=== PATIENT | male | born 1955 | race Caucasian/White ===

== ENCOUNTER 2023-09-23 00:58 | Inpatient (IN) | payer MEDICAID, OTHER ==
[~2023-09-23] VITALS: Ht 165.1 cm; Wt 81.6 kg
[2023-09-23] MEDS ORDERED: METF-440 PO (01:14)
[2023-09-23] MEDS ORDERED: LISI2.5T14 PO (01:14)
[2023-09-23] MEDS: IV NORMAL SALINE 1000 ML BAG IV ONE ×2 (02:10→05:52)
[2023-09-23 02:25] LABS: BASOPHILS % (AUTO) 0.2 % (0.0-2.0); HEMOGLOBIN 14.4 g/dL (12.5-16.3); LYMPHOCYTES # (AUTO) 0.2 K/uL (0.8-4.8); LYMPHOCYTES % (AUTO) 1.4 % (20.5-51.5); MEAN CORPUSCULAR HEMOGLOBIN 30.5 uug (23.8-33.4); MEAN CORPUSCULAR HGB CONC 34 g/dL (32.5-36.3); MEAN CORPUSCULAR VOLUME 91.1 fL (73.0-96.2); MONOCYTES # (AUTO) 0.1 K/uL (0.1-1.30); MONOCYTES % (AUTO) 0.5 % (0.0-11.0); NEUTROPHILS # (AUTO) 13.1 K/uL (1.8-8.9); NEUTROPHILS % (AUTO) 97.9 % (38.5-71.5); PLATELET COUNT (AUTO) 223 K/uL (152-348); RED BLOOD CELL COUNT(AUTO) 4.72 MIL/uL (4.06-5.63); RED CELL DISTRIBUTION WIDTH 13.6 % (12.1-16.2); WHITE BLOOD COUNT (AUTO) 13.3 K/uL (3.6-10.2)
[2023-09-23 02:27] LABS: DIFFERENTIAL COMMENT 1
[2023-09-23] MEDS ORDERED: CEFTRIAXONE /D5W 50ML IVPB **ER PYXIS IV ONE (02:30)
[2023-09-23] MEDS ORDERED: diphenhydrAMINE 50 MG/1 ML VIAL ONE (02:31)
[2023-09-23] MEDS ORDERED: METRONIDAZOLE 500 MG/NS 100ML 100 ML IV ONE (02:31)
[2023-09-23] MEDS ORDERED: METOCLOPRAMIDE HCL 10 MG/2 ML VIAL ONE (02:31)
[2023-09-23] MEDS ORDERED: HYDROMORPHONE 1 MG/1 ML DISP.SYRIN ONE (02:31)
[2023-09-23] MEDS: HYDROMORPHONE 1 MG/1 ML DISP.SYRIN IV ONE (02:40)
[2023-09-23] MEDS: diphenhydrAMINE 50 MG/1 ML VIAL IV ONE (02:40)
[2023-09-23] MEDS: METRONIDAZOLE 500 MG/NS 100ML 100 ML IV ONE (02:40)
[2023-09-23] MEDS: METOCLOPRAMIDE HCL 10 MG/2 ML VIAL IV ONE (02:40)
[2023-09-23 02:51] LABS: ALANINE AMINOTRANSFERASE 103 U/L (16-63); ALBUMIN 3.7 g/dL (3.4-5.0); ALKALINE PHOSPHATASE 244 U/L (50-136); ASPARTATE AMINOTRANSFERASE 203 U/L (15-37); BILIRUBIN,DIRECT 1.4 mg/dL (0.0-0.2); CALCIUM 8.7 mg/dL (8.5-10.1); CARBON DIOXIDE 25 mmol/L (21-32); CHLORIDE 99 mmol/L (98-107); CREATININE 1.2 mg/dL (0.6-1.3); NT-PRO BNP 55 pg/mL (0-125); POTASSIUM 3.3 mmol/L (3.5-5.1); SODIUM SERUM 134 mmol/L (136-145); TOTAL PROTEIN, SERUM 7.8 g/dL (6.4-8.2); UREA NITROGEN, BLOOD 14 mg/dL (7-18)
[2023-09-23 02:55] LABS: GLUCOSE 407 mg/dL (74-106); LACTIC ACID 2.7 mmol/L (0.4-2.0)
[2023-09-23] MEDS: CEFTRIAXONE 2 G in IV DEXTROSE 5% 100 ML IV ONE (03:30)
[2023-09-23] MEDS ORDERED: BENA10TA74 PO (04:35)
[2023-09-23 06:16] LABS: *BILIRUBIN,URIN NEGATIVE (NEGATIVE); *BLOOD, URINE NEGATIVE (NEGATIVE); *CLARITY,URINE CLEAR (CLEAR); *COLOR,URINE YELLOW (YELLOW); *KETONES,URINE 1+ (NEGATIVE); *PROTEIN,URINE TRACE (NEGATIVE); LEUKOCYTE ESTERASE ,URINE NEGATIVE (NEGATIVE); NITRITE, URINE NEGATIVE (NEGATIVE)
[2023-09-23 06:18] LABS: UGLUCOSE 3+ (NEGATIVE)
[2023-09-23] MEDS ORDERED: REMEDY ESSENTIAL ZINC PASTE 113 GM TP PRN (07:30)
[2023-09-23] MEDS ORDERED: DEXTROSE 50% 50 ML DISP.SYRIN IV PRN (07:30)
[2023-09-23] MEDS ORDERED: MORPHINE SULFATE 2 MG/1 ML DISP.SYRIN IV PRN (07:30)
[2023-09-23] MEDS ORDERED: MAGNESIUM HYDROXIDE 30 ML LIQUID UDC PO PRN (07:30)
[2023-09-23 08:15] LABS: BASOPHILS # (AUTO) 0.1 K/UL (0.0-0.2); BASOPHILS % (AUTO) 0.3 % (0.0-2.0); HEMATOCRIT 36.8 % (36.7-47.1); HEMOGLOBIN 12.3 g/dL (12.5-16.3); LYMPHOCYTES # (AUTO) 0.3 K/uL (0.8-4.8); LYMPHOCYTES % (AUTO) 1.8 % (20.5-51.5); MEAN CORPUSCULAR HEMOGLOBIN 30.8 uug (23.8-33.4); MEAN CORPUSCULAR HGB CONC 33 g/dL (32.5-36.3); MEAN CORPUSCULAR VOLUME 92.3 fL (73.0-96.2); MONOCYTES # (AUTO) 0.6 K/uL (0.1-1.30); MONOCYTES % (AUTO) 3.9 % (0.0-11.0); NEUTROPHILS # (AUTO) 15.5 K/uL (1.8-8.9); PLATELET COUNT (AUTO) 171 K/uL (152-348); RED BLOOD CELL COUNT(AUTO) 3.98 MIL/uL (4.06-5.63); RED CELL DISTRIBUTION WIDTH 13.3 % (12.1-16.2); WHITE BLOOD COUNT (AUTO) 16.5 K/uL (3.6-10.2)
[2023-09-23 08:21] LABS: DIFFERENTIAL COMMENT 1
[2023-09-23] MEDS: BLOOD SUGAR DIAGNOSTIC 1 EACH STRIP VI SCH (08:47)
[2023-09-23] MEDS ORDERED: INSULIN REGULAR, HUMAN 300 UNIT/3 ML VIAL ONE (08:50)
[2023-09-23 08:55] LABS: ALBUMIN 2.8 g/dL (3.4-5.0); BILIRUBIN,TOTAL 2.6 mg/dL (0.2-1.0); CALCIUM 7.8 mg/dL (8.5-10.1); CREATININE 1.3 mg/dL (0.6-1.3); MAGNESIUM 1.5 mg/dL (1.8-2.4); PHOSPHOROUS 1.5 mg/dL (2.5-4.9); POTASSIUM 3.4 mmol/L (3.5-5.1); TOTAL PROTEIN, SERUM 5.9 g/dL (6.4-8.2)
[2023-09-23] MEDS: INSULIN REGULAR, HUMAN 300 UNIT/3 ML VIAL SQ PRN (09:04)
[2023-09-23] MEDS ORDERED: DOCUSATE SODIUM 100 MG CAPSULE PO ONE (09:16)
[2023-09-23] MEDS ORDERED: MIRALAX 17 GM POWD.PACK ONE (09:16)
[2023-09-23] MEDS: DOCUSATE SODIUM 100 MG CAPSULE PO SCH (09:19)
[2023-09-23] MEDS: MIRALAX 17 GM POWD.PACK PO SCH (09:19)
[2023-09-23 09:21] LABS: THYROID STIMULATING HORMONE 2.379 mIU/mL (0.358-3.740)
[2023-09-23] MEDS: IV NS 1000 ML 1,000 ML IV PRN (09:22)
[2023-09-23] MEDS ORDERED: POTASSIUM CHLORIDE 20 MEQ TAB.PRT.SR ONE (09:24)
[2023-09-23] MEDS: POTASSIUM CHLORIDE 20 MEQ TAB.PRT.SR PO ONE (09:26)
[2023-09-23] MEDS ORDERED: MAGNESIUM SULFATE/D5W 200 ML ONE (09:48)
[2023-09-23] MEDS ORDERED: POTASSIUM PHOSPHATE MM 7.5 MMOL in IV NORMAL SALINE 97.5 ML IV ONE (10:00)
[2023-09-23] MEDS ORDERED: MAGNESIUM SULFATE/D5W 100 ML IV SCH (10:00)
[2023-09-23] MEDS: MAGNESIUM SULFATE/D5W 100 ML IV SCH (10:01)
[2023-09-23 10:34] LABS: CREATINE KINASE, TOTAL 86 U/L (39-308); LIPASE 85 U/L (16-77)
[2023-09-23] MEDS ORDERED: CEFEPIME HCL 1 G VIAL ONE ×2 (12:37→21:24)
[2023-09-23] MEDS: CEFEPIME HCL 1 G in IV DEXTROSE 5% 50 ML IV SCH (12:40)
[2023-09-23] MEDS ORDERED: CEFEPIME HCL 1 G in IV DEXTROSE 5% 50 ML IV SCH (14:00)
[2023-09-23 14:44] VITALS: BP 110/69; TEMP 97.9; O2SAT 97
[2023-09-23] MEDS: NEUTRA PHOS PACKET PO ONE (16:05)
[2023-09-23] MEDS: MAG HYDROX/AL HYDROX/SIMETH 30 ML LIQUID UDC PO PRN (18:06)
[2023-09-23] MEDS: MORPHINE SULFATE 4 MG/1 ML DISP.SYRIN IV PRN (18:15)
[2023-09-23] MEDS ORDERED: ASPI81TA31 PO (18:24)
[2023-09-23] MEDS ORDERED: PRAV80TA21 PO (18:24)
[2023-09-23] MEDS ORDERED: BENA40TA8 PO (18:25)
[2023-09-23] MEDS ORDERED: PANT40TA49 PO (18:25)
[2023-09-23] MEDS ORDERED: METF-442 PO (18:26)
[2023-09-23] MEDS ORDERED: FINA5TAB3 PO (18:26)
[2023-09-23] MEDS ORDERED: EMPA10TA PO (18:27)
[2023-09-23] MEDS ORDERED: INSU100C SQ (18:28)
[2023-09-23] MEDS ORDERED: INSU100V7 SQ (18:29)
[2023-09-23 20:00] VITALS: BP 129/84; TEMP 98.6; O2SAT 94
[2023-09-23] MEDS: INSULIN REGULAR, HUMAN 300 UNITS/3 ML VIAL SQ PRN (21:07)
[2023-09-24] VITALS (7 sets, daily range): BP systolic 123–151; BP diastolic 78–88; TEMP 97.8–99; O2SAT 93–96
[2023-09-24] MEDS: PANTOPRAZOLE SODIUM 40 MG TABLET.DR PO SCH (06:25)
[2023-09-24 06:31] LABS: BASOPHILS % (AUTO) 0.2 % (0.0-2.0); EOSINOPHILS # (AUTO) 0.1 K/uL (0.0-0.7); HEMATOCRIT 37.6 % (36.7-47.1); HEMOGLOBIN 12.6 g/dL (12.5-16.3); LYMPHOCYTES # (AUTO) 0.7 K/uL (0.8-4.8); LYMPHOCYTES % (AUTO) 6.1 % (20.5-51.5); MEAN CORPUSCULAR HEMOGLOBIN 30.7 uug (23.8-33.4); MEAN CORPUSCULAR HGB CONC 33 g/dL (32.5-36.3); MONOCYTES # (AUTO) 0.5 K/uL (0.1-1.30); MONOCYTES % (AUTO) 4.2 % (0.0-11.0); NEUTROPHILS # (AUTO) 9.9 K/uL (1.8-8.9); NEUTROPHILS % (AUTO) 88.5 % (38.5-71.5); PLATELET COUNT (AUTO) 158 K/uL (152-348); RED BLOOD CELL COUNT(AUTO) 4.09 MIL/uL (4.06-5.63); RED CELL DISTRIBUTION WIDTH 13.6 % (12.1-16.2); WHITE BLOOD COUNT (AUTO) 11.1 K/uL (3.6-10.2)
[2023-09-24 06:51] LABS: CALCIUM 8.2 mg/dL (8.5-10.1); MAGNESIUM 1.9 mg/dL (1.8-2.4); PHOSPHOROUS 2.2 mg/dL (2.5-4.9)
[2023-09-24 07:08] LABS: C-REACTIVE PROTEIN 16.25 mg/dL (0.00-0.30); DIFFERENTIAL COMMENT 1
[2023-09-24 07:35] LABS: HIV-1 p24 ANTIGEN NON REACTIVE (NONREACTIVE); HIV-1/2 ANTIBODY NON REACTIVE (NONREACTIVE)
[2023-09-24] MEDS: VANCOMYCIN IV 1,250 MG in IV DEXTROSE 5% 250 ML IV SCH (12:17)
[2023-09-24] MEDS: methylPREDNISolone SOD SUCC 125 MG/2 ML VIAL IV SCH (12:56)
[2023-09-24] MEDS: ONDANSETRON 4 MG/2 ML VIAL IV PRN (12:57)
[2023-09-24] MEDS: diphenhydrAMINE 50 MG/1 ML VIAL IV PRN (12:57)
[2023-09-24] MEDS: NEUTRA PHOS PACKET PO ONE (16:07)
[2023-09-24] MEDS ORDERED: PANTOPRAZOLE SODIUM 40 MG TABLET.DR PO ONE (17:00)
[2023-09-24] MEDS: LINEZOLID IV 600 MG in PREMIXED 1 EACH IV SCH (20:47)
[2023-09-25 06:00] VITALS: BP 141/79; TEMP 97.7; O2SAT 96
[2023-09-25] MEDS: ACETAMINOPHEN 325 MG TABLET PO PRN (06:52)
[2023-09-25 07:16] LABS: CALCIUM 8.5 mg/dL (8.5-10.1); PHOSPHOROUS 3.1 mg/dL (2.5-4.9); POTASSIUM 4.1 mmol/L (3.5-5.1)
[2023-09-25] MEDS: CEFEPIME HCL 1 G in IV DEXTROSE 5% 50 ML IV SCH (11:09)
[2023-09-25 11:40] VITALS: BP 140/85; TEMP 98.4; O2SAT 97
[2023-09-25 16:30] VITALS: BP 150/88; TEMP 97.4; O2SAT 97
[2023-09-25 20:00] VITALS: BP 145/72; TEMP 97.8; O2SAT 97
[2023-09-26 04:00] VITALS: BP 142/76; TEMP 97.4; O2SAT 97
[2023-09-26 11:42] VITALS: BP 144/87; TEMP 97.9; O2SAT 96
[2023-09-26 12:01] VITALS: BP 144/88; TEMP 97.9; O2SAT 96
[2023-09-26 16:28] VITALS: BP 154/95; TEMP 97.7; O2SAT 98
[2023-09-26 20:36] VITALS: BP 147/94; TEMP 97.9; O2SAT 98
[2023-09-27 05:13] VITALS: BP 166/90; TEMP 98.1
[2023-09-27 12:00] VITALS: BP 137/90; TEMP 97.8; O2SAT 94
[2023-09-27] MEDS: AMPICILLIN IV 2 G in IV NORMAL SALINE 100 ML IV SCH (16:00)
[2023-09-27 16:02] VITALS: BP 131/83; TEMP 97.8; O2SAT 98
[2023-09-27 20:31] VITALS: BP 140/82; TEMP 97.9; O2SAT 96
[2023-09-28 06:26] VITALS: BP 137/92; TEMP 97.8; O2SAT 95
[2023-09-28 11:40] VITALS: BP 136/86; TEMP 97.8; O2SAT 97
[2023-09-28] MEDS ORDERED: HOME MED MISCELLANEOUS XX SCH ×2 (13:30)
[2023-09-28] MEDS: BENAZEPRIL HCL 20 MG TABLET PO SCH (14:47)
[2023-09-28 16:23] VITALS: BP 132/89; TEMP 97.8; O2SAT 97
[2023-09-28] MEDS: METFORMIN HCL 500 MG TABLET PO SCH (17:14)
[2023-09-28 20:26] VITALS: BP 123/76; TEMP 97.7; O2SAT 97
[2023-09-28] MEDS: INSULIN GLARGINE,HUM 300 UNITS/3 ML CARTRIDGE SQ SCH (20:40)
[2023-09-28] MEDS: ATORVASTATIN 20 MG TABLET PO SCH (20:44)
[2023-09-29 04:58] VITALS: BP 129/68; TEMP 97.7; O2SAT 95
[2023-09-29 07:19] LABS: CALCIUM 8.3 mg/dL (8.5-10.1); CREATININE 0.8 mg/dL (0.6-1.3); MAGNESIUM 2.1 mg/dL (1.8-2.4); PHOSPHOROUS 3.4 mg/dL (2.5-4.9)
[2023-09-29 07:25] LABS: POTASSIUM 5.2 mmol/L (3.5-5.1)
[2023-09-29 08:05] LABS: BASOPHILS % (AUTO) 0.3 % (0.0-2.0); EOSINOPHILS # (AUTO) 0.2 K/uL (0.0-0.7); EOSINOPHILS % (AUTO) 1.9 % (0.0-7.0); HEMATOCRIT 40.5 % (36.7-47.1); HEMOGLOBIN 13.5 g/dL (12.5-16.3); LYMPHOCYTES # (AUTO) 1.8 K/uL (0.8-4.8); LYMPHOCYTES % (AUTO) 20.4 % (20.5-51.5); MEAN CORPUSCULAR HEMOGLOBIN 30.3 uug (23.8-33.4); MEAN CORPUSCULAR HGB CONC 33 g/dL (32.5-36.3); MEAN CORPUSCULAR VOLUME 91.2 fL (73.0-96.2); MONOCYTES # (AUTO) 0.8 K/uL (0.1-1.30); MONOCYTES % (AUTO) 8.9 % (0.0-11.0); NEUTROPHILS % (AUTO) 68.5 % (38.5-71.5); PLATELET COUNT (AUTO) 221 K/uL (152-348); RED BLOOD CELL COUNT(AUTO) 4.45 MIL/uL (4.06-5.63); RED CELL DISTRIBUTION WIDTH 13.5 % (12.1-16.2); WHITE BLOOD COUNT (AUTO) 8.8 K/uL (3.6-10.2)
[2023-09-29 08:15] LABS: DIFFERENTIAL COMMENT 1
[2023-09-29] MEDS: ASPIRIN 81 MG TAB.CHEW PO SCH (08:36)
[2023-09-29] MEDS: FINASTERIDE 5 MG TABLET PO SCH (08:37)
[2023-09-29 11:45] VITALS: BP 131/85; TEMP 97.8; O2SAT 95
[2023-09-29 16:23] VITALS: BP 143/85; TEMP 97.8; O2SAT 98
[2023-09-29 20:00] VITALS: TEMP 97.8
[2023-09-30 06:00] VITALS: TEMP 98
[2023-09-30 07:42] LABS: BASOPHILS % (AUTO) 0.5 % (0.0-2.0); EOSINOPHILS # (AUTO) 0.2 K/uL (0.0-0.7); EOSINOPHILS % (AUTO) 2.4 % (0.0-7.0); HEMATOCRIT 38.5 % (36.7-47.1); HEMOGLOBIN 12.9 g/dL (12.5-16.3); LYMPHOCYTES # (AUTO) 1.4 K/uL (0.8-4.8); LYMPHOCYTES % (AUTO) 22.4 % (20.5-51.5); MEAN CORPUSCULAR HEMOGLOBIN 30.4 uug (23.8-33.4); MEAN CORPUSCULAR HGB CONC 34 g/dL (32.5-36.3); MEAN CORPUSCULAR VOLUME 90.7 fL (73.0-96.2); MONOCYTES # (AUTO) 0.5 K/uL (0.1-1.30); MONOCYTES % (AUTO) 8.5 % (0.0-11.0); NEUTROPHILS # (AUTO) 4.2 K/uL (1.8-8.9); NEUTROPHILS % (AUTO) 66.2 % (38.5-71.5); PLATELET COUNT (AUTO) 240 K/uL (152-348); RED BLOOD CELL COUNT(AUTO) 4.24 MIL/uL (4.06-5.63); RED CELL DISTRIBUTION WIDTH 13.6 % (12.1-16.2); WHITE BLOOD COUNT (AUTO) 6.3 K/uL (3.6-10.2)
[2023-09-30 08:02] LABS: DIFFERENTIAL COMMENT 1
[2023-09-30 08:07] LABS: CALCIUM 8.1 mg/dL (8.5-10.1); CREATININE 0.9 mg/dL (0.6-1.3); MAGNESIUM 1.8 mg/dL (1.8-2.4); PHOSPHOROUS 2.7 mg/dL (2.5-4.9); POTASSIUM 3.5 mmol/L (3.5-5.1)
[2023-09-30 12:00] VITALS: BP 131/65; TEMP 97.6; O2SAT 100
[2023-09-30] MEDS ORDERED: AMPI500C11 PO (12:27)
[2023-09-30 15:52] VITALS: BP 108/58; TEMP 98.2; O2SAT 97
== END 2023-09-30 17:01 | disposition home or self-care (01) | DRG 720 ==
LOC: ER 01:09 → TRANSITION 08:00 → TELE3 13:28 → MEDSURG3 09-24 09:10
PROVIDERS: ADMIT Internal Medicine; ATTEND Nurse Practitioner Acute Care
DX: A41.51 Sepsis due to Escherichia coli [E. coli] (principal); N17.9 Acute kidney failure, unspecified; E83.39 Other disorders of phosphorus metabolism; A41.81 Sepsis due to Enterococcus; E66.9 Obesity, unspecified; Z68.30 Body mass index [BMI] 30.0-30.9, adult; R79.89 Other specified abnormal findings of blood chemistry; L27.0 Generalized skin eruption due to drugs and medicaments taken internally; T36.8X5A Adverse effect of other systemic antibiotics, initial encounter; Y92.230 Patient room in hospital as the place of occurrence of the external cause; E87.6 Hypokalemia; I10 Essential (primary) hypertension; R10.13 Epigastric pain; R11.2 Nausea with vomiting, unspecified; K21.9 Gastro-esophageal reflux disease without esophagitis; K29.70 Gastritis, unspecified, without bleeding; Z86.19 Personal history of other infectious and parasitic diseases; Z98.890 Other specified postprocedural states; R74.01 Elevation of levels of liver transaminase levels; Z87.19 Personal history of other diseases of the digestive system; E11.65 Type 2 diabetes mellitus with hyperglycemia
CPT/HCPCS: 36415; 71045; 83605; 83690; 83735; 84100; 84443; 84484; 85025; 85651; 85730; 86140; 86803; 87040; 87077; 87806; 93005; 93307; A4606; A4663; G0378; J0290; J0692; J0696; J1170; J1200; J1815; J2020; J2270; J2405; J2765; J2930; J3475; J3490; J7040; J7050